=== PATIENT | male | born 1975 | race Caucasian/White ===

== ENCOUNTER 2017-09-02 00:49 | Inpatient (IN) ==
[2017-09-02 01:15] LABS: Bilirubin,Urine Negative (Negative); Blood,Urine Small (Negative); Clarity,Urine Cloudy (Clear); Color,Urine Yellow (Yellow); Glucose,Urine (UA) Normal (Normal); Ketones,Urine Negative (Negative); Leukocyte Esterase,Urine Small (Negative); Nitrite,Urine Negative (Negative); Protein,Urine Trace mg/dL (Neg-Trace); Specific Gravity,Urine 1.024 (1.010-1.025); Urobilinogen,Urine Normal (Normal)
[2017-09-02 01:17] LABS: Bacteria,Urine None Seen per hpf (None-Few); Hyaline Casts,Urine None Seen per lpf (None-Few); Squamous Epithelial Cell,Urine Moderate per lpf (None-Few)
[2017-09-02] MEDS ORDERED: *HR* LORazepam 1 MG TABLET PO ONE (01:35)
[2017-09-02] MEDS ORDERED: Hyoscyamine SL 0.125 MG TAB.SUBL SL ONE (01:35)
[2017-09-02] MEDS ORDERED: *HR* OxyCODONE/APAP 10/325 TABLET PO ONE (01:35)
[2017-09-02 01:41] LABS: Basophils # 0.1 K/mcL (0.0-0.2); Eosinophils # 0.3 K/mcL (0.0-0.6); Eosinophils % 2.7 %; Hematocrit 45.6 % (37.5-50.1); Hemoglobin 15.3 g/dL (12.9-16.9); Immature Granulocytes % 0.4 % (0-4); Lymphocytes # 3.8 K/mcL (0.6-4.6); Lymphocytes % 33.2 %; Mean Corpuscular HGB Conc 33.6 g/dL (31.6-35.5); Mean Corpuscular Hemoglobin 28.8 pg (28.0-33.3); Mean Corpuscular Volume 85.9 fL (83.0-100.0); Mean Platelet Volume 10.4 fL (9.4-12.4); Monocytes # 0.9 K/mcL (0.0-1.3); Neutrophils # 6.3 K/mcL (1.6-8.9); Platelet Count 291 K/mcL (140-400); Red Blood Count 5.31 M/mcL (4.19-5.50); Red Cell Distribution Width 13.2 % (11.5-14.5); Segmented Neutrophils % 54.7 %
[2017-09-02 02:00] LABS: BUN/Creatinine Ratio 15 (6-26); Blood Urea Nitrogen 17 mg/dL (6-20); Calcium 9.9 mg/dL (8.6-10.3); Carbon Dioxide 24 mEq/L (23-29); Chloride 109 mEq/L (98-107); Glucose 121 mg/dL (70-105); Osmolality,Calculated 301 (280-300); Potassium 3.7 mEq/L (3.5-5.1); Sodium 144 mEq/L (136-145); eGFR For African Americans > 60 (> 60); eGFR For Non-African Americans > 60 (> 60)
[2017-09-02] MEDS ORDERED: *HR* FentaNYL (PF) 100 MCG/2 ML VIAL IVP ONE (04:05)
--- NOTE | 2017-09-02 04:25 | Emergency Department Note ---
Disposition Clinical Impression: Kidney stone Disposition: Admitted As Inpatient Condition: Good Referrals: NONE,PCP [Primary Care Provider] - General Adult HPI - General Chief complaint: ED Urogenital-Male Stated complaint: kidney stones Time Seen by Provider: 09/02/17 00:55 Source: patient Limitations: no limitations Nursing Notes Reviewed: Yes Vital Signs Reviewed: Yes - History of Present Illness HPI Narrative: This is a 41-year-old male who presents with concern for flank pain. He has a history of having ureteral colic and ultimately now thinks he has a large kidney stone [place]. He has not seen urology recently. He has no established urologist. He has no fever, chills, night sweats. He has no sick or ill contacts. He presents with intractable flank pain. General: No acute distress HEENT: Pupils equal and reactive to light, extraoccular muscle movement is normal, TMS are clear bilaterally. Heart: RRR, No murmor rub or gallop Lungs: lungs clear, no wheezing, rales or ronchi. ABD: SNT, no focal areas or tenderness, no guarding or rebound tenderness. Extremities: No cyanosis, clubbing or edema Neuro: CN 2-12 in tact, no focal deficit. strength 5/5. Medical decision making Findings consistent with 10 mm kidney stone. We will admit for intractable pain. I did attempt both by mouth and injectable modalities without improvement of pain symptoms. Patient be admitted and urology consult will be placed. creatinine is stable. UA does not suggest infection at this time. Pain Scale: 9 - Related Data Previous Rx's Medication Instructions Recorded Oxycodone HCl/Acetaminophen 1 each PO Q4HR PRN 2 Days #8 tablet 05/20/17 [Percocet 5-325 mg Tablet] Tamsulosin [Flomax] 0.4 mg PO DAILY #7 cap.er.24h 05/20/17 Allergies Allergy/AdvReac Type Severity Reaction Status Date / Time No Known Allergies Allergy Verified 09/02/17 00:50 All systems ED: reviewed and negative except as stated. Review of Systems: As Per HPI Past Medical History - Past Medical History Medical history: Reports: kidney stones Psychiatric history: Reports: depression - Social History Smoking Status: Current every day smoker Smokeless Tobacco Status: No Alcohol use: Reports: none Drug use: Reports: none Physical Exam - General Limitations: no limitations General appearance: alert, in no apparent distress Course Vital Signs Temperature 97.9 F 09/02/17 00:50 Pulse Rate 80 09/02/17 00:50 Respiratory Rate 16 09/02/17 00:50 Blood Pressure 145/97 09/02/17 00:50 O2 Sat by Pulse Oximetry 94 09/02/17 00:50 Temperature 97.9 F 09/02/17 00:50 Pulse Rate 80 09/02/17 00:50 Respiratory Rate 16 09/02/17 00:50 Blood Pressure 145/97 09/02/17 00:50 O2 Sat by Pulse Oximetry 94 09/02/17 00:50 Oxygen Delivery Oxygen Delivery Room Air Medical Decision Making - Lab Data Result diagrams: 09/02/17 01:30 09/02/17 01:30 Lab Results 09/02/17 09/02/17 09/02/17 Range/Units 00:52 01:30 01:30 WBC 11.4 H (4.3-11.1) K/mcL RBC 5.31 (4.19-5.50) M/mcL Hgb 15.3 (12.9-16.9) g/dL Hct 45.6 (37.5-50.1) % MCV 85.9 (83.0-100.0) fL MCH 28.8 (28.0-33.3) pg MCHC 33.6 (31.6-35.5) g/dL RDW 13.2 (11.5-14.5) % Plt Count 291 (140-400) K/mcL MPV 10.4 (9.4-12.4) fL Immature Gran % 0.4 (0-4) % Seg Neutrophils % 54.7 % Lymphocytes % 33.2 % Monocytes % 8.0 % Eosinophils % 2.7 % Basophils % 1.0 % Neutrophils # 6.3 (1.6-8.9) K/mcL Lymphocytes # 3.8 (0.6-4.6) K/mcL Monocytes # 0.9 (0.0-1.3) K/mcL Eosinophils # 0.3 (0.0-0.6) K/mcL Basophils # 0.1 (0.0-0.2) K/mcL Sodium 144 (136-145) mEq/L Potassium 3.7 (3.5-5.1) mEq/L Chloride 109 H (98-107) mEq/L Carbon Dioxide 24 (23-29) mEq/L BUN 17 (6-20) mg/dL Creatinine 1.10 (0.70-1.30) mg/dL Est GFR ( Amer) > 60 (> 60) Est GFR (Non-Af Amer) > 60 (> 60) BUN/Creatinine Ratio 15 (6-26) Glucose 121 H (70-105) mg/dL Calculated Osmolality 301 H (280-300) Calcium 9.9 (8.6-10.3) mg/dL Urine Color Yellow (Yellow) Urine Clarity Cloudy A (Clear) Urine pH 6.0 (5.0-8.0) pH Units Ur Specific [place] 1.024 (1.010-1.025) Urine Protein Trace (Neg-Trace) mg/dL Urine Glucose (UA) Normal (Normal) mg/dL Urine Ketones Negative (Negative) mg/dL Urine Blood Small H (Negative) Urine Nitrite Negative (Negative) Urine Bilirubin Negative (Negative) Urine Urobilinogen Normal (Normal) mg/dL Ur Leukocyte Esterase Small H (Negative) Urine Microscopic RBC 5-15 H (0-3) per hpf Urine Microscopic WBC 5-15 H (0-3) per hpf Ur Squamous Epith Cells Moderate H (None-Few) per lpf Urine Bacteria None Seen (None-Few) per hpf Hyaline Casts None Seen (None-Few) per lpf Ur Culture Indicated? YES A (NO)
--- NOTE | 2017-09-02 04:41 | Internal Med History&Physical ---
<Kimberlyn Vila - Last Filed: 09/02/17 04:30> Date of Encounter: 09/02/17 Time of Encounter: 05:00 Internal Medicine - H&P: HPI Chief complaint: left flank pain Admitted From: Home Plans for Post Hospital Care: Home History of present illness: Mr. Lindo is a 41 year old male with a past medical history of nephrolithiasis and depression who presented to the ED with left flank pain. Patient states the pain started tonight after dinner. He describes the pain as sharp and intermittent. Pain begins in his back and radiates down to his groin. Patient has had a lithotripsy previously for kidney stones. He still able to make urine but has noticed urine color to be more brown than normal. Denies dysuria. Patient does not have a urologist. Upon arrival to the ED, patient's vitals are within normal limits. Laboratories today showed a white blood cell count 11.4, UA is positive for blood but negative for infection. CT of abdomen and pelvis shows Acute left obstructive uropathy secondary to a 1 cm calculus at the left UPJ and an irregularly shaped 13 mm nonobstructing calculus in the left renal pelvis with mild left hydronephrosis. Urology was consultative an oncologist in the ED. Patient is admitted to the floor for nephrolithiasis. Past Med Surg Social Fam HX - Past Medical History Medical history: kidney stones Additional medical history: tremors Psychiatric history: depression - Social History Smoking Status: Current every day smoker Smokeless Tobacco Status: No Alcohol use: none Drug use: none Internal Medicine - H&P: Meds 3 Allergy/AdvReac Type Severity Reaction Status Date / Time No Known Allergies Allergy Verified 09/02/17 00:50 All Systems PM: A 10-system review of systems was performed and is negative for pertinent findings except as documented above in the HPI. - Constitutional Vitals: Temp Pulse Resp BP Pulse Ox 97.9 F 80 16 145/97 94 09/02/17 00:50 09/02/17 00:50 09/02/17 00:50 09/02/17 00:50 09/02/17 00:50 Exam: Constitutional: Alert, in no acute distress Head: Normocephalic, atraumatic Heart: Normal, regular rate and rhythm, no murmurs Lungs: Clear to auscultation, no wheezes, rales, or rhonchi Abdomen: tenderness at left lower quadrant, Soft, nontender, bowel sounds present and normal, no guarding or rigidity. Extremities: No edema, No clubbing, radial pulse +2/4, capillary refill <2sec. back: L CVA tenderness, tenderness on left flank Skin: diaphoretic, skin warm, no lesions, no rashes, no jaundice Neurologic: Cranial nerves II through XII grossly intact, strength 5/5 in all extremitites Psych: Cooperative with exam, good eye contact, cognitive function intact, speech clear, thought process logical, and goal directed Internal Med - H&P Results - Labs CBC & Chem 7: 09/02/17 01:30 09/02/17 01:30 Labs: Short CBC 09/02/17 Range/Units 01:30 WBC 11.4 H (4.3-11.1) K/mcL Hgb 15.3 (12.9-16.9) g/dL Hct 45.6 (37.5-50.1) % Plt Count 291 (140-400) K/mcL Neutrophils # 6.3 (1.6-8.9) K/mcL BMP 09/02/17 01:30 Sodium 144 Potassium 3.7 Chloride 109 H Carbon Dioxide 24 BUN 17 Creatinine 1.10 Glucose 121 H Calcium 9.9 Urine 09/02/17 Range/Units 00:52 Urine Color Yellow (Yellow) Urine Clarity Cloudy A (Clear) Urine pH 6.0 (5.0-8.0) pH Units Ur Specific [place] 1.024 (1.010-1.025) Urine Protein Trace (Neg-Trace) mg/dL Urine Glucose (UA) Normal (Normal) mg/dL - Impressions ITS Impressions Abdomen/Pelvis CT 09/02/17 03:00 IMPRESSION: Acute left obstructive uropathy secondary to a 1 cm calculus at the left UPJ. There is an irregularly shaped 13 mm nonobstructing calculus in the left renal pelvis. There is a tiny nonobstructing calculus in the lower pole of the right kidney. D/ / Crescencio Ruiz MD / Crescencio Ruiz MD Interpreting Provider: Crescencio Ruiz MD - Assessment and plan (1) Left nephrolithiasis Current Visit: Yes Status: Acute Assessment and plan: CT abdomen and pelvis shows: Acute left obstructive uropathy secondary to a 1 cm calculus at the left UPJ. Mild left hydronephrosis. Patient is still able to void. Afebrile, WBC = 11.4. Plan: - NS 100ml/hr - urology consult placed, call in the AM - IV for NPO: Toradol, Fentanyl - strain urine prn void - nausea: Zofran (2) DVT prophylaxis Current Visit: Yes Status: Acute Assessment and plan: ICDs (3) UTI (urinary tract infection) Current Visit: Yes Status: Acute Assessment and plan: UA is positve for blood most likely 2/2 to the kidney stone and small leukocyte esterases [place] likely 2/2 to damaged WBCs. Patient has mild elevation of WBCs= 11.4. Less likely UA but will treat until cultures return as patient does have obstruction. Cetriaxone 1g IV daily initiated. Qualifiers: Urinary tract infection type: site unspecified Hematuria presence: with hematuria Qualified Code(s): N39.0 - Urinary tract infection, site not specified; R31.9 - Hematuria, unspecified - Time Spent With Patient Total time spent is greater than 50% in coordination of care (as documented) at patient's floor/unit and/or counseling patient: <Socorro Grant - Last Filed: 09/02/17 06:49> Date of Encounter: 09/02/17 Internal Medicine - H&P: HPI History of present illness: Mr. Lindo is a 41 year old male All Systems PM: A 10-system review of systems was performed and is negative for pertinent findings except as documented above in the HPI. - Constitutional Vitals: Temp Pulse Resp BP Pulse Ox 97.9 F 74 15 135/77 96 09/02/17 00:50 09/02/17 05:57 09/02/17 05:57 09/02/17 05:57 09/02/17 05:57 Internal Med - H&P Results - Labs CBC & Chem 7: 09/02/17 01:30 09/02/17 01:30 Labs: Short CBC 09/02/17 Range/Units 01:30 WBC 11.4 H (4.3-11.1) K/mcL Hgb 15.3 (12.9-16.9) g/dL Hct 45.6 (37.5-50.1) % Plt Count 291 (140-400) K/mcL Neutrophils # 6.3 (1.6-8.9) K/mcL BMP 09/02/17 01:30 Sodium 144 Potassium 3.7 Chloride 109 H Carbon Dioxide 24 BUN 17 Creatinine 1.10 Glucose 121 H Calcium 9.9 Urine 09/02/17 Range/Units 00:52 Urine Color Yellow (Yellow) Urine Clarity Cloudy A (Clear) Urine pH 6.0 (5.0-8.0) pH Units Ur Specific [place] 1.024 (1.010-1.025) Urine Protein Trace (Neg-Trace) mg/dL Urine Glucose (UA) Normal (Normal) mg/dL - Impressions ITS Impressions Abdomen/Pelvis CT 09/02/17 03:00 IMPRESSION: Acute left obstructive uropathy secondary to a 1 cm calculus at the left UPJ. There is an irregularly shaped 13 mm nonobstructing calculus in the left renal pelvis. There is a tiny nonobstructing calculus in the lower pole of the right kidney. D/ / Crescencio Ruiz MD / Crescencio Ruiz MD Interpreting Provider: Crescencio Ruiz MD - Attending Attestation I have seen and examined this patient independently. I have discussed with resident physician Dr. Vila regarding the management plan. Agree with the documentation. - Assessment and plan (1) Left nephrolithiasis Current Visit: Yes Status: Acute (2) DVT prophylaxis Current Visit: Yes Status: Acute (3) UTI (urinary tract infection) Current Visit: Yes Status: Acute Qualifiers: Urinary tract infection type: site unspecified Hematuria presence: with hematuria Qualified Code(s): N39.0 - Urinary tract infection, site not specified; R31.9 - Hematuria, unspecified - Time Spent With Patient Total time spent is greater than 50% in coordination of care (as documented) at patient's floor/unit and/or counseling patient:
[2017-09-02] MEDS ORDERED: Ketorolac 30 MG/ML VIAL IVP PRN (05:45)
[2017-09-02] MEDS ORDERED: Naloxone 0.4 MG/ML INJ IVP PRN ×2 (05:45→16:03)
[2017-09-02] MEDS ORDERED: Ibuprofen 400 MG TABLET PO PRN (05:45)
[2017-09-02] MEDS ORDERED: traMADol 50 MG TABLET PO PRN (05:45)
[2017-09-02] MEDS ORDERED: Ondansetron ODT 4 MG TAB.RAPDIS SL PRN ×2 (05:45→16:03)
[2017-09-02] MEDS ORDERED: *HR* FentaNYL (PF) 100 MCG/2 ML VIAL IVP PRN ×2 (05:48→16:03)
[2017-09-02] MEDS ORDERED: 0.9 % Sodium Chloride 1,000 ML IVC SCH (06:30)
--- NOTE | 2017-09-02 08:49 | Urology - Consult Note ---
Date of Encounter: 09/02/17 Time of Encounter: 08:44 - Assessment and Plan (1) Left nephrolithiasis Current Visit: Yes Status: Acute Urology CN:HPI Consult date: 09/02/17 History of present illness: Patient is a 41 yo male who presents to ED with 1 day history of left flank pain , nausea, vomiting. Patient admits to history of recurrent nephrolithiasis. Patient does not see urologist or PCP due to lack of health insurance. Last instance of renal stones 2-3 years ago and was treated at [facility] with lithotripsy. Patient currently denies fever, chills, dysuria, hematuria. Patient also disclosed PMH of bipolar disorder and depression which are controlled at present. Past Med Surg Social Fam HX - Past Medical History Medical history: kidney stones Additional medical history: tremors Psychiatric history: bipolar, depression - Past Surgical History Additional surgical history: Lithotripsy x 2 - Social History Smoking Status: Current every day smoker Smokeless Tobacco Status: Yes Alcohol use: none Drug use: none - Family History Mother Hx Family Medical Disorders: Yes (Mother diagnosed with unknown cancer; patient states it is not urologic ) Medications and Allergies No Known Home Drugs 09/02/17 [History] 3 Allergy/AdvReac Type Severity Reaction Status Date / Time No Known Allergies Allergy Verified 09/02/17 06:53 Review of Systems - Constitutional as per HPI - Cardiovascular no chest pain, no dyspnea, no edema - Respiratory no cough, no dyspnea - Gastrointestinal nausea, vomiting, no abdominal pain, no change in bowel habits - Genitourinary flank pain, hematuria, urinary frequency, urinary hesitancy, no change in urinary stream, no difficulty urinating, no dysuria, no genital lesions, no genital pain, no penile discharge, no scrotal swelling, no testicular mass, no testicular pain, no urinary incontinence, no urinary urgency - Musculoskeletal back pain, no muscle weakness, no numbness - Integumentary no lesions, no rash - Neurological no confusion, no sensory deficit, no syncope, no weakness - Psychiatric as per HPI, anxiety, depression, no confusion, no suicidal ideation Exam Initial Vital Signs Temp Pulse Resp BP Pulse Ox 97.9 F 80 16 145/97 94 09/02/17 00:50 09/02/17 00:50 09/02/17 00:50 09/02/17 00:50 09/02/17 00:50 - General physical appearance Present: well developed, no distress - Eyes Present: PERRL, normal ocular movement. Absent: icteric - Neck Present: no masses, trachea midline - Respiratory Present: normal respiratory effort - Abdomen Abdomen: Present: soft, tender (Tenderness to palpation LLQ). Absent: guarding , rigid, rebound Hernia: Present: none - Genitourinary other (+Left CVAT) - Integumentary Present: no rash, no abnormal pigmentation. Absent: lesions - Neurologic Present: normal coordination. Absent: disoriented, confused Urology Results - Labs 09/02/17 01:30 09/02/17 01:30 Abnormal lab results WBC 11.4 K/mcL (4.3-11.1) H 09/02/17 01:30 Chloride 109 mEq/L (98-107) H 09/02/17 01:30 Glucose 121 mg/dL (70-105) H 09/02/17 01:30 Calculated Osmolality 301 (280-300) H 09/02/17 01:30 Urine Clarity Cloudy (Clear) A 09/02/17 00:52 Urine Blood Small (Negative) H 09/02/17 00:52 Ur Leukocyte Esterase Small (Negative) H 09/02/17 00:52 Urine Microscopic RBC 5-15 per hpf (0-3) H 09/02/17 00:52 Urine Microscopic WBC 5-15 per hpf (0-3) H 09/02/17 00:52 Ur Squamous Epith Cells Moderate per lpf (None-Few) H 09/02/17 00:52 Ur Culture Indicated? YES (NO) A 09/02/17 00:52 All other labs normal. - Imaging CT scan - abdomen: report reviewed, image reviewed (Large Left UPJ Stone visualized and Hydronephrosis; Reviewed with Dr. Curtis) CT scan - pelvis: report reviewed, image reviewed Consult Discharge Plan - Plan Additional Instructions: I reviewed CT results with patient at bedside. I discussed surgical intervention and reviewed risks and benefits of procedure. Patient has elected to proceed with Cystoscopy, Left Retrograde Pyelogram, and Left Ureteral Stent Placement as discussed. Patient will be added to OR schedule this afternoon and remain NPO. Referrals: NONE,PCP [Primary Care Provider] - Estuardo Curtis MD [Partnered Physician] - - Attending Attestation Estuardo Curtis MD
[2017-09-02] MEDS ORDERED: cefTRIAXone 1,000 MG in Water for inj. (sterile) 20 ML 10 ML IVP SCH (09:00)
--- NOTE | 2017-09-02 10:11 | Event Note ---
<Haseeb Maynard - Last Filed: 09/02/17 10:05> Date of Encounter: 09/02/17 Time of Encounter: 10:06 Patient seen and examined at bedside. He reports minimal pain this morning. She denies nausea, vomiting, dysuria. He reports that he has had recurrent kidney stones in the past and said procedures previously. He has no other complaints this morning. PE: A and O 3, no acute distress Heart regular rate and rhythm, no murmurs, rubs, gallops Lungs clear to auscultation bilaterally Abdomen soft, nontender, nondistended. Normoactive bowel sounds Assessment: Urolithiasis Urinary tract obstruction due to stone Pyuria/hematuria Plan: Patient will undergo cystoscopy with likely left ureteral stent placement this afternoon with Dr. Curtis Keep nothing by mouth, continue IV fluids Toradol and fentanyl as needed for pain control Patient received one-time dose of Rocephin this morning given the plan for invasive procedure however I do not feel that he has H her urinary tract infection Pyuria and hematuria is well as mild leukocytosis (11.4) likely related to stone. Afebrile, no dysuria. We will discontinue antibiotics and continue to monitor <Paula Dorsey - Last Filed: 09/02/17 16:39> Date of Encounter: 09/02/17 I examined this patient and my medical decision-making was reviewed with the Resident Physician Dr. Maynard. I agree with the documented findings, disposition and treatment plan as described except to the extent set forth below. Mr. Hernandez is a 41 y/o M known recurrent nephrolithiasis admitted here for Left UPJ calculi and obstructive uropathy. He just came back from OR after a stent placement. He is still c/o Left flank pain. Gen: A, A, O x 3 Chest: Diminished BS b/l a/p 1. Acute Left UPJ calculi 2. Obstructive uropathy s/p stent UA - benign no need of abx 3. COPD - duoneb PRN 4. Tobacco dependence on nicotine patch
[2017-09-02] MEDS ORDERED: Albuterol 2.5 MG/3 ML NEBULIZER IH ONE (13:14)
[2017-09-02] MEDS ORDERED: Famotidine 20 MG/2 ML VIAL IVP ONE ×2 (13:14→16:03)
--- NOTE | 2017-09-02 13:17 | Anesthesia Evaluation PreOp ---
Date of Encounter: 09/02/17 Time of Encounter: 13:25 - Past History Planned Operation: Left Cystoscopy/ Stent Cardiac History: Denies any Significant Hx Pulmonary History: Smoker LEATHER SCRUBBER History: Denies Any Significant HX Other Medical History: Other (Depression) Anesthesia History: No Prior Anesthetic Complications Alcohol Use: none Drug use: none Medications and Allergies No Known Home Drugs 09/02/17 [History] 3 Allergy/AdvReac Type Severity Reaction Status Date / Time No Known Allergies Allergy Verified 09/02/17 06:53 - Meds/Allergy Pre-op Review Medications Reviewed: Yes Allergies Reviewed: Yes Beta Blockers on Current Med List: No Anesthesia Results - Labs 09/02/17 01:30 09/02/17 01:30 Anesthesia Exam O2 Sat Height 1.78 m Weight 104.6 kg Weight 104.6 kg Weight 104.326 kg O2 Sat by Pulse Oximetry 97 O2 Sat by Pulse Oximetry 93 O2 Sat by Pulse Oximetry 96 O2 Sat by Pulse Oximetry 94 Vital Signs Temp Pulse Resp BP Pulse Ox 97.9 F 80 16 145/97 94 09/02/17 00:50 09/02/17 00:50 09/02/17 00:50 09/02/17 00:50 09/02/17 00:50 Height: 5'10 Weight: 230 lbs NPO (# of Hours): MN Pain Scale: 0 - HEENT Pupil (Motor): Pupils equal, EOMI Mallampati: III Teeth: Normal Oral Opening: Less than or equal to 3 - LEATHER SCRUBBER LOC: Oriented LEATHER SCRUBBER Motor: Normal RUE, Normal LUE, Normal RLE, Normal LLE, Normal Face LEATHER SCRUBBER Sensory: Normal: RUE, LUE, RLE, LLE, Face - Cardiac Rhythm: Regular Murmur: None JVD: No Carotid Bruit: No - Pulmonary Breath Sounds: bilateral Clear Respiratory Effort: Symmetrical Anesthesia Assess/Plan ASA Score: 2 Modified [place] Scale for Level of Consciousness: Cooperative, oriented, and tranquil Anesthetic Plan: General Monitoring Plan: Standard Monitors Recovery Plan: PACU (Discussed GA, agrees to proceed)
[2017-09-02] MEDS ORDERED: *HR* FentaNYL (PF) 100 MCG/2 ML VIAL ONE ×2 (13:29→14:36)
[2017-09-02] MEDS ORDERED: *HR* Propofol 200 MG/20 ML VIAL IVP ONE (13:29)
[2017-09-02] MEDS ORDERED: Ondansetron 4 MG/2 ML VIAL ONE (13:30)
[2017-09-02] MEDS ORDERED: *HR* Midazolam HCl 2 MG/2 ML VIAL ONE (13:30)
[2017-09-02] MEDS ORDERED: Dexamethasone 4 MG/ML VIAL ONE ×2 (13:30→14:32)
[2017-09-02] MEDS ORDERED: Lidocaine -MPF 2% 2 ML VIAL ONE (13:30)
[2017-09-02] MEDS ORDERED: Isovue-300 50 ML VIAL IVP ONE (13:31)
[2017-09-02] MEDS ORDERED: Ketorolac 30 MG/ML VIAL ONE (14:44)
[2017-09-02] MEDS ORDERED: *HR* OxyCODONE Immed Rel 5 MG TABLET PO PRN (14:46)
[2017-09-02] MEDS ORDERED: *HR* Promethazine 25 MG/ML VIAL IVP PRN (14:46)
[2017-09-02] MEDS ORDERED: Dexamethasone 4 MG/ML VIAL IVP ONE (14:46)
[2017-09-02] MEDS ORDERED: *HR* Morphine Soln 10 MG/5 ML UDC PO PRN (14:46)
[2017-09-02] MEDS ORDERED: Ipratropium/Albuterol Neb 3 ML IH PRN (16:36)
[2017-09-02] MEDS ORDERED: Nicotine 21 MG PATCH.TD24 TD SCH (16:45)
[2017-09-02] MEDS: 0.9 % Sodium Chloride 1,000 ML IVC SCH ×2 (17:36→19:03)
--- NOTE | 2017-09-02 18:04 | Operative Note ---
Date of procedure: 09/02/17 Pre-op diagnosis: Left ureteral calculi and renal calculi Post-op diagnosis: same Procedure: Cystoscopy, left retrograde pyelogram, left ureteral stent placement Anesthesia: GETA Surgeon: Estuardo Curtis Was there an junior assistant manager present: No Estimated blood loss (cc): 0 Specimen: none Condition: stable Disposition: PACU Procedure in Detail: PROCEDURE IN DETAIL: Patient was taken back to the operating room, positioned supine on the operating table. Anesthesia was applied without complication. They were moved into dorsal lithotomy. Careful attention was maintained to cushion all pressure points for patient's safety. They were prepped and draped in sterile fashion. Time-out was performed with the proper patient and procedure. A 21-Thai rigid cystoscope was inserted into the bladder without difficulty. Systematic examination of bladder revealed no abnormalities. The left ureteral orifice was cannulated using a 5-Thai ureteral Catheter and a retrograde pyelogram was performed using Isovue. A filling defect was identified which corresponded to the stone. At that point, a zip wire was placed through the 5-Thai and confirmed in the renal pelvis with fluoroscopy. A 4.8 x 26 stent was then passed without complication. No dangle string was left attached.
--- NOTE | 2017-09-02 18:06 | Event Note ---
Date of Encounter: 09/02/17 Time of Encounter: 18:06 Okay to discharge per urology standpoint. No activity restrictions. My office will contact patient with a surgery date for definitive management of stones
[2017-09-02] MEDS: Ketorolac 30 MG/ML VIAL IVP PRN (19:02)
[2017-09-03] MEDS: Ketorolac 30 MG/ML VIAL IVP PRN (03:44)
[2017-09-03 07:17] VITALS: BP 159/83
--- NOTE | 2017-09-03 07:35 | Discharge Summary ---
<Haseeb Maynard - Last Filed: 09/03/17 07:33> Date of Encounter: 09/03/17 Time of Encounter: 07:33 - Discharge Diagnosis (1) Left nephrolithiasis Priority: Primary Status: Acute (2) UTI (urinary tract infection) Priority: Primary Status: Suspected Qualifiers: Urinary tract infection type: site unspecified Hematuria presence: with hematuria Qualified Code(s): N39.0 - Urinary tract infection, site not specified; R31.9 - Hematuria, unspecified Hospital course: Mr. Hernandez is a 41 year old male with history of kidney stones who presented with left flank pain. CT scan of the abdomen revealed 1 cm obstructing kidney stone. Urology was consulted and the patient underwent cystoscopy with left ureteral stent placement. Patient tolerated the procedure well. The morning after the procedure he did have some feeling of urinary retention and difficulty starting his stream. Bladder scan showed complete emptying of bladder after urination. Patient is tolerating a diet well and is stable for discharge. - Time Spent with Patient Total time spent providing and/or coordinating discharge services: - Discharge Medications Prescriptions: OxyCODONE/APAP 5/325 [Percocet 5/325 MG] 1 each PO Q6HR PRN 5 Days #20 tablet PRN Reason: Pain Ondansetron ODT [Zofran ODT] 4 mg SL Q8HR PRN #20 tab.rapdis PRN Reason: Nausea And Vomiting Sulfamethoxazole/Trimeth DS [Bactrim DS] 1 each PO BID #10 tablet Home Medications: Ondansetron ODT [Zofran ODT] 4 mg SL Q8HR PRN #20 tab.rapdis 09/03/17 [Rx] OxyCODONE/APAP 5/325 [Percocet 5/325 MG] 1 each PO Q6HR PRN 5 Days #20 tablet [Rx] Sulfamethoxazole/Trimeth DS [Bactrim DS] 1 each PO BID #10 tablet 09/03/17 [Rx] Allergies/Adverse Reactions: 3 Allergy/AdvReac Type Severity Reaction Status Date / Time No Known Allergies Allergy Verified 09/02/17 06:53 Date of admission: 09/02/17 07:43 Primary care physician: PCP NONE Discharging clinician: Haseeb Maynard Anticipated date of discharge: 09/03/17 - Constitutional Vitals: Temp Pulse Resp BP Pulse Ox 97.5 F L 85 15 159/83 96 09/03/17 07:17 09/03/17 07:17 09/03/17 07:17 09/03/17 07:17 09/03/17 07:17 General appearance: Present: A&O X 3, pleasant, no acute distress - Respiratory Respiratory exam: Present: CTAB. Absent: rales, rhonchi, wheezes - Cardiovascular Cardiovascular exam: Present: RRR. Absent: gallop, rubs, systolic murmur - GI/Abdominal GI/Abdominal exam: Present: normal bowel sounds, soft. Absent: distended, tenderness - Extremities Exam Extremities exam: Present: warm. Absent: pedal edema, tenderness - Neurological Exam Neurological exam: Present: alert, CN II-XII intact, oriented X3, no focal deficits - Patient Status Disposition: Home, Self-Care Condition: Good Functional capacity at discharge: independent ambulation Overall status at discharge: patient is progressing back to baseline - Discharge Instructions Instructions: Kidney Stones (DC) Follow Up With: Estuardo Curtis MD [Partnered Physician] - (Office will call patient with date and time of next appt. or further surgery date. Thank you) Additional Instructions: Please follow-up with your primary care physician in one week. Please follow-up with Dr. Curtis as scheduled. Please seizure pain medication and antinausea medication as needed. Please take your antibiotic until completed. Please return for any new or worsening symptoms. - Diet and Activity Activity: increase activity as tolerated Diet: advance to your usual diet - VTE Documentation of Mechanical Device: Intermittent pneumatic compression device <Paula Dorsey - Last Filed: 09/03/17 13:59> Date of Encounter: 09/03/17 - Discharge Diagnosis (1) Left nephrolithiasis Status: Acute (2) UTI (urinary tract infection) Status: Suspected Qualifiers: Urinary tract infection type: site unspecified Hematuria presence: with hematuria Qualified Code(s): N39.0 - Urinary tract infection, site not specified; R31.9 - Hematuria, unspecified Hospital course: Mr. Hernandez is a 41 year old male - Time Spent with Patient Total time spent providing and/or coordinating discharge services: Date of admission: 09/02/17 07:43 Primary care physician: PCP NONE - Constitutional Vitals: Temp Pulse Resp BP Pulse Ox 97.5 F L 85 15 159/83 96 09/03/17 07:17 09/03/17 07:17 09/03/17 07:17 09/03/17 07:17 09/03/17 07:17 - Attending Attestation I examined this patient and my medical decision-making was reviewed with the Resident Physician Dr. Maynard. I agree with the documented findings, disposition and treatment plan as described except to the extent set forth below. Mr. Hernandez is a 41 y/o M known recurrent nephrolithiasis admitted here for Left UPJ calculi and obstructive uropathy. He had a stent placement y/d. His Left flank pain is tolerable with meds. He still c/o some dysuria symptoms Gen: A, A, O x 3 Chest: Diminished BS b/l a/p 1. Acute Left UPJ calculi 2. Obstructive uropathy 3. Dysuria s/p stent UA - benign since he does have dysuria symptoms - agree with PO Abx for 3 more days 3. COPD - duoneb PRN 4. Tobacco dependence on nicotine patch
[2017-09-03] MEDS ORDERED: cefTRIAXone 1,000 MG in Water for inj. (sterile) 20 ML 10 ML IVP SCH (09:00)
== END 2017-09-03 10:17 | disposition home or self-care (01) | DRG 694 ==
LOC: EMEROO 00:49 → 2SOUTHHOLD 00:49 → OBSVTOIN 07:43 → 2SOUTHHOLD 08:26 → 3ANU 18:45
PROVIDERS: ADMIT Hospitalist; ATTEND Hospitalist